=== PATIENT | male | born 1975 | race African-American/Black ===

== ENCOUNTER 2022-10-25 12:27 | Emergency (ER) | payer OTHER ==
[~2022-10-25] VITALS: Ht 172.7 cm; Wt 75.0 kg
[2022-10-25 12:35] VITALS: BP 131/84
== END 2022-10-25 18:58 | disposition left against medical advice (07) ==
LOC: ER 12:27
DX: Z53.21 Procedure and treatment not carried out due to patient leaving prior to being seen by health care provider (principal)
CPT/HCPCS: 93005

== ENCOUNTER 2022-10-26 07:07 | Inpatient (IN) | payer OTHER ==
[~2022-10-26] VITALS: Ht 180.3 cm; Wt 103.0 kg
[2022-10-26] MEDS ORDERED: ACETAMINOPHEN 325MG TABLET PO STA (07:49)
[2022-10-26] MEDS ORDERED: VANCOMYCIN 1G PREMIX 200 ML IV ONE (08:00)
[2022-10-26] MEDS ORDERED: SODIUM CHLORIDE 0.9% 1000ML BAG (SEPSIS BOLUS) IV ONE (08:00)
[2022-10-26] MEDS ORDERED: PIPERACILLIN/TAZ 3.375G PREMIX 50 ML IV ONE (08:00)
[2022-10-26 08:13] LABS: BASOPHILS % 0.9 % (0.0-2.0); EOSINOPHILS % 0.9 % (0.0-5.0); HEMATOCRIT. 34.6 % (42.0-52.0); HEMOGLOBIN. 11.7 g/dL (14.0-18.0); LYMPHOCYTES % 17.7 % (20.0-50.0); MEAN CORPUSCULAR HEMOGLOBIN 24.1 pg (28.0-32.0); MEAN CORPUSCULAR VOLUME 70.9 fL (80.0-94.0); MEAN PLATELET VOLUME 8.5 fl (7.4-10.4); MONOCYTES % 10.1 % (2.0-8.0); NEUTROPHILS % 70.4 % (40.0-76.0); PLATELET 244 x1000/uL (130-400); RED BLOOD CELL COUNT 4.87 mill/uL (4.7-6.1); RED CELL DISTRIBUTION WIDTH 16.3 % (11.6-14.6)
[2022-10-26] MEDS ORDERED: ALBUTEROL (0.083%) 2.5MG/3ML NEB HHN STA (08:25)
[2022-10-26] MEDS ORDERED: IPRATROPIUM BROMIDE (0.02%) 0.5MG/2.5ML NEB HHN STA (08:25)
[2022-10-26 08:28] LABS: CHLORIDE 100 mEq/L (98-107)
[2022-10-26] MEDS ORDERED: DOCUSATE SODIUM 100MG CAPSULE PO PRN (08:30)
[2022-10-26] MEDS ORDERED: SODIUM CHLORIDE 0.9% 1,000 ML IV SCH (08:30)
[2022-10-26] MEDS ORDERED: MAGNESIUM/ALUMINUM HYDROXIDE/SIMETHICONE 30ML UDC PO PRN (08:30)
[2022-10-26] MEDS ORDERED: DIPHENHYDRAMINE 50MG/ML VIAL IV PRN (08:30)
[2022-10-26] MEDS ORDERED: ACETAMINOPHEN 325MG TABLET PO PRN ×2 (08:30)
[2022-10-26] MEDS ORDERED: IPRATROPIUM/ALBUTEROL 0.5-3(2.5)MG/3ML NEB HHN PRN (08:30)
[2022-10-26] MEDS ORDERED: GUAIFENESIN 200MG/10ML SUGAR FREE UDC PO PRN (08:30)
[2022-10-26] MEDS ORDERED: LOPERAMIDE HCL 2MG CAPSULE PO NR (09:00)
[2022-10-26] MEDS: PANTOPRAZOLE 40MG DR TABLET PO SCH (09:19)
[2022-10-26] MEDS: ENOXAPARIN 40MG/0.4ML SYR SUBCUT SCH (10:00)
[2022-10-26] MEDS ORDERED: IOHEXOL-350 100 ML BOTTLE ONE (10:25)
[2022-10-26 10:59] LABS: CLARITY URINE CLEAR (CLEAR); COLOR URINE YELLOW (YELLOW); KETONES URINE TRACE (NEGATIVE); LEUKOCYTE ESTERASE URINE NEGATIVE (NEGATIVE); NITRITE URINE NEGATIVE (NEGATIVE); OCCULT BLOOD URINE NEGATIVE (NEGATIVE); PH URINE 5.5 (4.5-8.0); PROTEIN URINE 1+ (NEGATIVE); SPECIFIC GRAVITY URINE 1.023 (1.005-1.030); UROBILINOGEN URINE 0.2 E.U./dL (0.2-1.0)
[2022-10-26 12:09] LABS: D-DIMER 1.77 mg/L FEU (<0.50); INR 1.1
[2022-10-26] MEDS ORDERED: AZITHROMYCIN 250 MG in DEXT 5% WATER 250 ML IV SCH (14:00)
[2022-10-26] MEDS ORDERED: CEFTRIAXONE 1 G PREMIX 50 ML IV SCH (14:00)
[2022-10-26] MEDS ORDERED: AZITHROMYCIN 500 MG in DEXT 5% WATER 250 ML IV SCH (14:00)
[2022-10-26] MEDS ORDERED: BARIUM SULFATE 176 GM SUSP.RECON ONE (14:13)
[2022-10-26] MEDS ORDERED: BARIUM SULFATE(VOLUMEN) 450 ML ORAL.SUSP ONE (14:14)
[2022-10-26 15:49] LABS: INR 1.1; PROTHROMBIN TIME 11.5 sec (9.6-11.0)
[2022-10-26 16:00] LABS: CREATINE KINASE 267 IU/L (39-308)
[2022-10-26 16:19] LABS: HEPATITIS B SURFACE ANTIGEN NEGATIVE
[2022-10-26] MEDS: DEXT 5%/0.9% NACL 1,000 ML IV SCH ×2 (22:14→22:34)
[2022-10-27 00:46] VITALS: BP 133/82
[2022-10-27 04:00] VITALS: BP 122/86
[2022-10-27 08:00] VITALS: BP 124/81
[2022-10-27] MEDS: PANTOPRAZOLE 40MG DR TABLET PO SCH (08:24)
[2022-10-27] MEDS: DEXT 5%/0.9% NACL 1,000 ML IV SCH ×2 (08:24→18:29)
[2022-10-27] MEDS: ENOXAPARIN 40MG/0.4ML SYR SUBCUT SCH (10:55)
[2022-10-27 12:00] VITALS: BP 120/79
[2022-10-27 12:35] LABS: HEMATOCRIT. 30.4 % (42.0-52.0); HEMOGLOBIN. 10.1 g/dL (14.0-18.0); MEAN CORPUSCULAR HEMOGLOBIN 23.8 pg (28.0-32.0); MEAN CORPUSCULAR VOLUME 71.7 fL (80.0-94.0); MEAN PLATELET VOLUME 8.7 fl (7.4-10.4); PLATELET 202 x1000/uL (130-400); RED BLOOD CELL COUNT 4.25 mill/uL (4.7-6.1); RED CELL DISTRIBUTION WIDTH 16.1 % (11.6-14.6)
[2022-10-27 13:50] LABS: PLATELET ESTIMATE NORMAL
[2022-10-27 14:07] LABS: TOTAL IRON BINDING CAPACITY 309 ug/dL (250-450)
[2022-10-27 14:40] LABS: CHLORIDE 109 mEq/L (98-107)
[2022-10-27] MEDS ORDERED: CEFTRIAXONE 1,000 MG in DEXTROSE 5% WATER 50 ML IV SCH (15:00)
[2022-10-27 15:04] LABS: HDL CHOLESTEROL 24 mg/dL (40-59); LDL CHOLESTEROL 20 mg/dL (5-100); T4 FREE 1.38 ng/dL (0.76-1.46)
[2022-10-27 16:00] VITALS: BP 123/77
[2022-10-27 20:00] VITALS: BP 124/84
[2022-10-27] MEDS ORDERED: AZITHROMYCIN 500MG in DEXTROSE 5% WATER 250ML IV SCH (21:00)
[2022-10-28] VITALS: BP 104/64
[2022-10-28] MEDS: DEXT 5%/0.9% NACL 1,000 ML IV SCH (03:04)
[2022-10-28 04:00] VITALS: BP 109/71
[2022-10-28 07:40] LABS: HEMATOCRIT. 30.2 % (42.0-52.0); HEMOGLOBIN. 10.3 g/dL (14.0-18.0); MEAN CORPUSCULAR HEMOGLOBIN 24.1 pg (28.0-32.0); MEAN CORPUSCULAR VOLUME 70.7 fL (80.0-94.0); MEAN PLATELET VOLUME 8.8 fl (7.4-10.4); PLATELET 206 x1000/uL (130-400); RED BLOOD CELL COUNT 4.27 mill/uL (4.7-6.1); RED CELL DISTRIBUTION WIDTH 16.2 % (11.6-14.6)
[2022-10-28 07:57] VITALS: BP 117/74
[2022-10-28] MEDS: PANTOPRAZOLE 40MG DR TABLET PO SCH (08:00)
[2022-10-28 08:02] LABS: CHLORIDE 110 mEq/L (98-107)
[2022-10-28] MEDS: ENOXAPARIN 40MG/0.4ML SYR SUBCUT SCH (11:02)
[2022-10-28 14:41] VITALS: BP 133/83
[2022-10-28 15:02] LABS: PLATELET ESTIMATE NORMAL
[2022-10-28] MEDS ORDERED: ENOXAPARIN 30MG/0.3ML SYR SUBCUT SCH (21:00)
== END 2022-10-28 16:20 | disposition home or self-care (01) | DRG 254 ==
LOC: ER 07:07 → MICUSO 19:24 → EDBEDREQSVC 19:33 → EDBEDREQTM 19:33 → EDBEDREQ 19:33 → ENRESERV 22:50 → 7WST 10-27 00:36
PROVIDERS: ADMIT Internal Medicine; ATTEND Internal Medicine
DX: R13.14 Dysphagia, pharyngoesophageal phase (principal); J96.91 Respiratory failure, unspecified with hypoxia; J69.0 Pneumonitis due to inhalation of food and vomit; N17.9 Acute kidney failure, unspecified; E44.1 Mild protein-calorie malnutrition; E87.1 Hypo-osmolality and hyponatremia; J44.0 Chronic obstructive pulmonary disease with (acute) lower respiratory infection; R16.0 Hepatomegaly, not elsewhere classified; E86.0 Dehydration; J44.1 Chronic obstructive pulmonary disease with (acute) exacerbation; E78.5 Hyperlipidemia, unspecified; I10 Essential (primary) hypertension; D18.03 Hemangioma of intra-abdominal structures; D50.9 Iron deficiency anemia, unspecified; K57.90 Diverticulosis of intestine, part unspecified, without perforation or abscess without bleeding; R74.01 Elevation of levels of liver transaminase levels; F17.210 Nicotine dependence, cigarettes, uncomplicated; Z20.822 Contact with and (suspected) exposure to COVID-19; Z68.31 Body mass index [BMI] 31.0-31.9, adult
CPT/HCPCS: 36415; 71045; 71275; 74177; 74220; 76700; 80053; 80061; 80076; 81003; 82550; 83036; 83540; 83550; 83605; 83880; 84145; 84439; 84443; 84481; 84484; 85025; 85379; 86705; 86709; 86803; 87015; 87045; 87340; 87426; 87427; 87449; 87493; 87804; 89055; 92610; 93005; 93306; 93970; 99291; C1893; C9803; J0456; J0696; J1200; J1650; J2543; J3370; J7030; J7060; Q9967

== ENCOUNTER 2022-11-06 07:11 | Emergency (ER) | payer MEDICAID, OTHER ==
[~2022-11-06] VITALS: Ht 180.3 cm; Wt 100.0 kg
[2022-11-06 07:14] VITALS: BP 110/76
[2022-11-06 09:10] LABS: HEMATOCRIT. 31.7 % (42.0-52.0); HEMOGLOBIN. 10.5 g/dL (14.0-18.0); MEAN CORPUSCULAR HEMOGLOBIN 23.5 pg (28.0-32.0); MEAN PLATELET VOLUME 8.3 fl (7.4-10.4); PLATELET 276 x1000/uL (130-400); RED BLOOD CELL COUNT 4.47 mill/uL (4.7-6.1); RED CELL DISTRIBUTION WIDTH 16.5 % (11.6-14.6)
[2022-11-06] MEDS ORDERED: ACETAMINOPHEN 325MG TABLET PO STA (09:26)
[2022-11-06] MEDS ORDERED: SODIUM CHLORIDE 0.9% 1000ML BAG (SEPSIS BOLUS) IV ONE (09:30)
[2022-11-06 09:49] LABS: PLATELET ESTIMATE NORMAL
[2022-11-06 10:36] LABS: CHLORIDE 105 mEq/L (98-107)
[2022-11-06] MEDS ORDERED: PREDNISONE 20MG TABLET PO ONE (11:30)
[2022-11-06] MEDS ORDERED: P20 MT (13:33)
== END 2022-11-06 14:07 | disposition home or self-care (01) ==
LOC: ER 07:11
DX: J44.1 Chronic obstructive pulmonary disease with (acute) exacerbation (principal); J22 Unspecified acute lower respiratory infection; Z87.01 Personal history of pneumonia (recurrent); Z20.822 Contact with and (suspected) exposure to COVID-19
CPT/HCPCS: 36415; 71045; 71250; 80053; 83605; 84145; 85025; 87040; 87420; 87426; 87804; 93005; 96360; 99285; C9803; J7030; J7512

== ENCOUNTER 2022-11-25 07:07 | Emergency (ER) | payer MEDICAID ==
[~2022-11-25] VITALS: Ht 180.3 cm; Wt 89.0 kg
[~2022-11-25 07:07] MED LIST: P20 MT
[2022-11-25 07:36] VITALS: BP 114/81
[2022-11-25 09:27] LABS: CHLORIDE 103 mEq/L (98-107)
[2022-11-25 09:33] LABS: EOSINOPHILS % 7.5 % (0.0-5.0); HEMATOCRIT. 28.9 % (42.0-52.0); HEMOGLOBIN. 9.7 g/dL (14.0-18.0); LYMPHOCYTES % 27.5 % (20.0-50.0); MEAN CORPUSCULAR HEMOGLOBIN 23.7 pg (28.0-32.0); MEAN CORPUSCULAR VOLUME 70.3 fL (80.0-94.0); MEAN PLATELET VOLUME 8.4 fl (7.4-10.4); MONOCYTES % 7.8 % (2.0-8.0); NEUTROPHILS % 56.2 % (40.0-76.0); PLATELET 248 x1000/uL (130-400); RED BLOOD CELL COUNT 4.11 mill/uL (4.7-6.1); RED CELL DISTRIBUTION WIDTH 17.9 % (11.6-14.6)
[2022-11-25 09:37] LABS: CLARITY URINE CLEAR (CLEAR); COLOR URINE DARK YELLOW (YELLOW); KETONES URINE TRACE (NEGATIVE); LEUKOCYTE ESTERASE URINE NEGATIVE (NEGATIVE); NITRITE URINE NEGATIVE (NEGATIVE); OCCULT BLOOD URINE NEGATIVE (NEGATIVE); PROTEIN URINE 1+ (NEGATIVE); SPECIFIC GRAVITY URINE 1.019 (1.005-1.030)
== END 2022-11-25 10:40 | disposition home or self-care (01) ==
LOC: ER 07:07
DX: Z00.00 Encounter for general adult medical examination without abnormal findings (principal); Z87.01 Personal history of pneumonia (recurrent)
CPT/HCPCS: 36415; 80053; 81003; 85025; 99283

== ENCOUNTER 2023-02-04 07:23 | Emergency (ER) | payer OTHER ==
[~2023-02-04] VITALS: Ht 180.3 cm; Wt 87.0 kg
[2023-02-04] MEDS ORDERED: SODIUM CHLORIDE 0.9% 1,000 ML IV ONE (08:15)
[2023-02-04 08:33] LABS: HEMATOCRIT. 36.3 % (42.0-52.0); HEMOGLOBIN. 11.7 g/dL (14.0-18.0); MEAN CORPUSCULAR HEMOGLOBIN 24.9 pg (28.0-32.0); MEAN CORPUSCULAR VOLUME 77.3 fL (80.0-94.0); MEAN PLATELET VOLUME 8.6 fl (7.4-10.4); PLATELET 240 x1000/uL (130-400); RED BLOOD CELL COUNT 4.69 mill/uL (4.7-6.1); RED CELL DISTRIBUTION WIDTH 22.8 % (11.6-14.6)
[2023-02-04 08:41] LABS: *AMPHETAMINES SCREEN URINE NEGATIVE (NEGATIVE); *BARBITURATES SCREEN URINE NEGATIVE (NEGATIVE); *BENZODIAZEPINES SCREEN URINE NEGATIVE (NEGATIVE); *COCAINE SCREEN URINE NEGATIVE (NEGATIVE); CANNABINOID URINE SCREEN NEGATIVE (NEGATIVE); METHADONE URINE SCREEN NEGATIVE (NEGATIVE); OPIATES URINE SCREEN NEGATIVE (NEGATIVE); PHENCYCLIDINE URINE SCREEN NEGATIVE (NEGATIVE)
[2023-02-04 08:45] LABS: CHLORIDE 108 mEq/L (98-107)
[2023-02-04 08:54] LABS: ETHANOL BLOOD < 10 mg/dL
[2023-02-04 09:20] LABS: PLATELET ESTIMATE NORMAL
[2023-02-04 10:00] VITALS: BP 115/75
== END 2023-02-04 10:54 | disposition home or self-care (01) ==
LOC: ER 07:23
DX: R00.0 Tachycardia, unspecified (principal); Z00.00 Encounter for general adult medical examination without abnormal findings
CPT/HCPCS: 36415; 71045; 80053; 80305; 80320; 83690; 83880; 84484; 85025; 93005; 96360; 99285; J7030; Z7610; G0480